=== PATIENT | female | born 1950 | race Caucasian/White ===

== ENCOUNTER → 2016-05-02 16:47 | Outpatient (CLI) | payer OTHER, MEDICARE, BC ==
[2014-10-05 08:45] VITALS: BMI 28.6
[~2016-05-02 16:47] MED LIST: ACETAMINOPHEN325 MG PO; ADVIL200 MG PO; AMBIEN5 MG PO; BAYER CHEWABLE81 MG PO; COLACE100 MG PO; FIBER THERAPY1368 GM PO; HYDROCODONE-APA1 TAB PO; MELATONIN 3 MG1 TAB PO; MULTIPLE VITAMI1 TA1 PO; SYNTHROID100 MCG PO; ULTRAM50 MG PO
== END | disposition home or self-care (01) ==
LOC: D.MAMMO 04-30 09:00
DX: Z85.3 Personal history of malignant neoplasm of breast (principal)

== ENCOUNTER → 2017-05-29 16:59 | Outpatient (CLI) | payer OTHER, MEDICARE, BC ==
[2014-10-05 08:45] VITALS: BMI 28.6
== END | disposition home or self-care (01) ==
LOC: D.MAMMO 04-24 09:00 → D.US 04-24 10:00 → D.MAMMO 10:00
DX: Z85.3 Personal history of malignant neoplasm of breast (principal); Z12.31 Encounter for screening mammogram for malignant neoplasm of breast

== ENCOUNTER → 2017-09-25 19:05 | Outpatient (CLI) | payer MEDICARE, BC ==
[2014-10-05 08:45] VITALS: BMI 28.6
== END | disposition home or self-care (01) ==
LOC: D.MAMMO 08:30
DX: N64.4 Mastodynia (principal); Z85.3 Personal history of malignant neoplasm of breast